=== PATIENT | female | born 1945 | race Caucasian/White ===

== ENCOUNTER 2019-09-26 19:46 | Inpatient (IN) | payer MEDICARE ==
[~2019-09-26] VITALS: Ht 157.5 cm; Wt 53.4 kg
--- NOTE | ~2019-09-26 | HEMODYNAMI ---
PATIENT:ROSEY BERNAL MEDICAL RECORD: [id number] : 41 [address] [id number] ADMISSION DATE: 10/12/19 Generatedon:10/12/201910:21 Patient name: ROSEY BERNAL Patient #: [id number] SSN: : 1945 Date of study: 10/12/2019 Page: Of Hemodynamic Procedure Report Patient Data Patient Demographics Procedure consent was obtained First Name: ROSYE Gender: Female Last Name: GABE : 1945 Patient #: [id number] Age: 74 year(s) Race: Unknown Additional ID: [id number] Contact details [address]: [address] [place] [address] State: [place] City: [place] Zip code: [address] Admission Admission Data Admission Date: 10/12/2019 Admission Time: 6:13 Room #: [facility] Procedure Procedure Types Cath Procedure Peripheral vascular Intervention Stent Carotid Stent Procedure Description Procedure Date Procedure Date: 10/12/2019 Procedure Start Time: 9:00 Procedure Staff Name Function Matt Paris MD Performing Physician Pierre Billy RT Monitor MARTITA CHAUDHRY RT Scrub Zari Nickerson RN Nurse Procedure Data Cath Procedure Fluoroscopy Diagnostic fluoroscopy Total fluoroscopy Time: time: 13.1 min 13.1 min Diagnostic fluoroscopy Total fluoroscopy dose: 482 dose: 482 mGy mGy Contrast Material Contrast Material Type Amount (ml) Isovue 300 90 Diagnostic catheters Device Type Used For End Catheter Placement Merit Chris Nielsen 5FR. 100CM catheter ([id number]) Procedure Medications Medication Administration Route Dosage Heparin Flush Bag added to field 4 bags (1000units/500ml NS) Lidocaine 1% added to field 20 Fentanyl I.V. 25 mcg Versed I.V. 0.5 mg Heparin Bolus I.V. 4000 units Fentanyl I.V. 25 mcg Hemodynamics Rest Heart Rate: 77 (bpm) Snapshots Pre Cath Intra NCS Post Cath Vital Signs Time Heart Resp SPO2 etCO2 NIBP (mmHg) Rhythm Pain Sedation Rate (ipm) (%) (mmHg) Status Level (bpm) 8:44:29 78 16 10.4 179/95(116) NSR 0 (11) 10(A) , No pain 8:48:49 87 9 31.4 185/84(130) NSR 0 (11) 10(A) , No pain 8:53:12 76 9 100 32.2 185/83(118) NSR 0 (11) 10(A) , No pain 8:57:30 80 16 100 25.4 194/92(125) NSR 0 (11) 10(A) , No pain 9:01:52 78 13 100 29.9 183/91(133) NSR 0 (11) 10(A) , No pain 9:06:10 78 14 100 20.9 192/95(125) NSR 0 (11) 10(A) , No pain 9:10:30 81 12 96 30.7 197/103(136) NSR 0 (11) 9(A) , No pain 9:14:52 80 13 96 9.7 195/100(140) NSR 0 (11) 9(A) , No pain 9:19:16 81 8 96 35.9 182/89(137) NSR 0 (11) 9(A) , No pain 9:23:36 82 16 96 24.7 180/83(112) NSR 0 (11) 9(A) , No pain 9:27:55 81 10 95 23.2 190/90(130) NSR 0 (11) 9(A) , No pain 9:32:17 82 11 96 14.9 184/84(142) NSR 0 (11) 9(A) , No pain 9:36:39 79 12 96 13.4 162/83(139) NSR 0 (11) 9(A) , No pain 9:41:38 79 10 92 12.7 Measuring NSR 0 (11) 9(A) , No pain 9:42:01 78 10 97 30.7 163/81(114) NSR 0 (11) 9(A) , No pain 9:46:19 75 12 98 0 163/69(120) NSR 0 (11) 9(A) , No pain 9:50:41 75 9 96 31.4 120/55(92) NSR 0 (11) 9(A) , No pain 9:55:40 74 13 78 0 Measuring NSR 0 (11) 9(A) , No pain 9:55:50 73 12 97 29.2 111/58(100) NSR 0 (11) 9(A) , No pain 10:00:47 73 14 100 0 134/67(97) NSR 0 (11) 9(A) , No pain 10:04:57 73 8 96 25.4 141/62(90) NSR 0 (11) 9(A) , No pain 10:09:09 72 10 99 22.4 125/64(97) NSR 0 (11) 9(A) , No pain 10:13:19 76 12 88 22.4 140/57(91) NSR 0 (11) 9(A) , No pain 10:17:29 75 11 97 31.4 124/66(104) NSR 0 (11) 9(A) , No pain Medications Time Medication Route Dose Verified Delivered Reason Notes Effec tiveness by by 9:06:00 Heparin Flush added 4 Matt Gutierrez used for Bag to bags Wellington Paris procedure (1000units/500ml field MD DRAKE NS) 9:06:11 Lidocaine 1% added 20ml Matt Gutierrez for local to vial Wellington Paris anesthetic field MD DRAKE 9:06:22 Fentanyl I.V. 25 Matt Hameed for mcg Wellington Nickerson RN sedation 9:06:39 Versed I.V. 0.5 Matt Hameed for mg Wellington Nickerson RN sedation 9:10:35 Heparin Bolus I.V. 4000 Matt Hameed Per units Wellington Nickerson RN physician 9:21:18 Fentanyl I.V. 25 Matt Hameed for mcg Wellington Nickerson RN sedation Procedure Log Time Note 8:31:08 Pierre Billy RT (R) (CV) sent for patient. Start room use. 8:31:17 Time tracking: Regular hours (M-F 7:00 - 5:00) 8:31:22 Plan of Care:Hemodynamics will remain stable., Cardiac rhythm will remain stable., Comfort level will be maintained., Respiratory function will remain adequate., Patient/ family verbilizes understanding of procedure., Procedure tolerated without complication., Recovers from procedure without complications.. 8:31:27 Use device set IR Diagnostic 8:31:32 ACIST Syringe (27346) opened to sterile field. 8:31:32 ACIST Hand Control (63148) opened to sterile field. 8:31:32 ACIST Manifold (21098) opened to sterile field. 8:31:33 Bag Decanter (2001S) opened to sterile field. 8:31:33 Sterile Angiographic Pack opened to sterile field. 8:31:34 Tegaderm 4 x 4 (1626W) opened to sterile field. 8:32:07 Patient received from Outpatients to IR Alert and oriented. Tansferred to table in Supine position. 8:32:12 Signed procedure consent form obtained from patient. 8:32:18 Correct patient and procedure confirmed by team. 8:32:19 Full Disclosure recording started 8:32:22 - 8:32:26 H&P Date Dictated: 10/12/2019 H&P Addendum completed by physician on day of procedure. (MUST COMPLETE FOR ALL OUTPATIENTS). 8:32:26 Pre-procedure instructions explained to patient. 8:32:27 Pre-op teaching completed and patient verbalized understanding. 8:32:28 Family in waiting room. 8:32:30 Patient NPO since Midnight. 8:32:35 Is the patient allergic to Iodine/contrast media? No. 8:32:37 Is patient on blood thinner?Yes 8:32:45 ACC The patient was administered the following blood thiners within the last 24 hours: ACCAspirin, Eliquis 8:32:47 Patient diabetic? No. 8:32:57 If diabetic: On Metformin? No 8:32:58 - 8:32:58 ----Pre-sedation anethsthesia assessment.---- 8:33:01 Previous problem with sedation/anesthesia? No ? 8:33:02 Snore? Yes 8:33:04 Sleep apnea? No 8:33:16 Deviated septum? No 8:33:17 Opens mouth fully? Yes 8:33:19 Sticks out tongue? Yes 8:33:38 Airway obstruction? Yes lung ca 8:33:44 Dentures? Yes in tight 8:35:54 Pre procedure: right dorsailis pedis pulse 1+ Palpable, but thready & weak; easily obliterated 8:36:04 IV patent on arrival in left forearm with 0.9% NaCl at KVO. 8:36:16 Right groin area was prepped with chlora-prep and draped in sterile fashion 8:41:13 2) 60-89 Mildly reduced kidney function, and other findings (as for stage 1) point to kidney disease. 8:42:28 Maximum allowable contrast dose (3.7 X eGFR X 0.75)205 ml. 8:43:27 ECG and BP/O2 sat monitors applied to patient. 8:43:28 Baseline sample Acquired. 8:43:28 Vital chart was started 8:59:15 Physician arrived 8:59:15 --------ALL STOP TIME OUT------ 8:59:16 Final Timeout: patient, procedure, and site verified with staff and physician. All members of the team are in agreement. 8:59:19 Right groin site verified by team. 8:59:22 Fire Safety Assessment: A--An alcohol-based skin anteseptic being used preoperatively., C--Open oxygen or nitrous oxide is being used. 8:59:30 Sedation plan: IV Moderate Sedation Medication:Versed, Fentanyl 9:00:13 Procedure started. 9:00:16 Local anesthetic to right femoral artery with Lidocaine 1% by Matt Paris MD.INITIAL ACCESS ONLY 9:00:30 DOC .035 wire (P66326) opened to sterile field. 9:00:30 Cook RAABE 6FR. 90cm guide sheath opened to sterile field. 9:00:31 DOC .035 wire (U78922) opened to sterile field. 9:00:31 TUBING Contrast Injection High Pressure (STJ722A) opened to sterile field. 9:00:32 SHEATH 5FR [place] (MXN984) opened to sterile field. 9:00:32 CHOICE PT Extra Support J 300cm guide wire ([id number]) opened to steril e field. 9:00:32 Micropuncture VSI 4FR kit opened to sterile field. 9:00:35 A Merit Impress Nielsen 5FR. 100CM catheter ([id number]) was advanced over the wire and used for . 9:00:36 INFLATOR BasixTOUCH (LO4095) opened to sterile field. 9:00:56 SPIDER EMBOLIC PROTECTION DEVICE 5MM ([id number]) opened to sterile field. 9:06:00 Heparin Flush Bag (1000units/500ml NS) 4 bags added to field was administered by Matt Paris MD; used for procedure; Verbal order read back and verified. 9:06:11 Lidocaine 1% 20ml vial added to field was administered by Matt kwong MD; for local anesthetic; Verbal order read back and verified. 9:06:22 Fentanyl 25 mcg I.V. was administered by Zari Nickerson RN; for sedation ; Verbal order read back and verified. 9:06:39 Versed 0.5 mg I.V. was administered by Zari Nickerson RN; for sedation; Verbal order read back and verified. 9:10:35 Heparin Bolus 4000 units I.V. was administered by Zari Nickerson RN; Per physician; Verbal order read back and verified. 9:12:03 GLIDE WIRE ANGLE 260cm (AF3476) opened to sterile field. 9:12:10 TORQUE DEVICE PLASTIC .038 ( TD01) opened to sterile field. 9:21:18 Fentanyl 25 mcg I.V. was administered by Zari Nickerson RN; for sedation ; Verbal order read back and verified. 9:33:11 Inflate balloon Inflation number: 1 A VIATRAC 4 x 2 x 135 balloon ([id number]) was prepped and advanced across the Undefined1 , then inflated to 8 YAEL for 0:05 (min:sec) . 9:41:58 PROTEGE RX TAPERED 8-6MM X 40MM X 135CM stent ([id number]) was deploye d across Undefined1 . 9:42:16 Inflate balloon Inflation number: 2 A VIATRAC 5 x 2 x 135 balloon ([id number]) was prepped and advanced across the Undefined1 , then inflated to 8 YAEL for 0:03 (min:sec) . 9:52:00 SHEATH 6FR [place] (YIF046) opened to sterile field. 9:55:57 MYNX SHOP STEWARD 6FR/7FR (DA1573) opened to sterile field. 10:00:56 Procedure ended.(Physican Out) 10::22 Fluoroscopy time 13.10 minutes. 10::29 Fluoroscopy dose: 482 mGy 10::29 Flurop Dose total: 482 10:03:08 Contrast amount:Isovue 300 90ml. 10:03:11 Sharps counted by scrub and verified by R.N. 10:03:12 Insertion/operative site no bleeding no hematoma. 10:03:16 Post-op/insertion site Right Femoral artery dressed using a 4 x 4 and Tegaderm. 10:03:20 Post right femoral artery:stable 10:03:23 Procedure and supply charges have been captured, reviewed, submitted an d are correct. 10:03:23 Post procedure instruction explained to patient.Patient verbalizes understanding. 10:20:51 Report given to CVICU. 10:20:55 Patient transfered to CVICU with Bed. 10:21:15 Vital chart was stopped Intervention Summary Intervention Notes Time ActionType Lesion and Equipment Action# Pressure Duration Attributes Used 9:33:11 Inflate Undefined1 VIATRAC 4 x 2 1 8 00:05 balloon x 135 balloon ([id number]) 9:41:58 Deploy self Undefined1 PROTEGE RX 1 expanding TAPERED 8-6MM stent X 40MM X 135CM stent ([id number]) 9:42:16 Inflate Undefined1 VIATRAC 5 x 2 2 8 00:03 balloon x 135 balloon ([id number]) Device Usage Item Name Manufacture Quantity Catalog Number Hospital Part Current Minimal Lot# / Charge Number Stock Stock Serial# Code ACIST Syringe Acist 1 37254 446414 407462 174182 20 (54993) Medical Systems Inc ACIST Hand Acist 1 71717 466508 071855 401679 5 Control Medical (67546) Systems Inc ACIST Manifold Acist 1 86958 913518 623378 062886 5 (46057) Medical Systems Inc Bag Decanter Microtek 1 2001S 488949 90801 270656 5 (2001S) Medical Inc. Sterile Cardinal 1 [id number] 090803 271267 5 Angiographic Health Pack Tegaderm 4 x 4 3M 1 1626W 176096 753946 189057 5 (1626W) DOC .035 wire Cook Medical 2 D79428 239931 384362 5 (W56587) Cook RAABE Cook Medical 1 G42451 774624 966340 5 6FR. 90cm guide sheath TUBING Merit 1 [id number] 971236 339743 251598 5 Contrast Medical Injection High Pressure (YZF662N) SHEATH 5FR Terumo 1 PVA401 096226 450163 317164 5 [place] (PHB869) CHOICE PT [place] 1 [id number] 986548 5 [id number] Extra Support Scientific J 300cm guide wire (7963738U8) Micropuncture VSI VASCULAR 1 7266V 136919 022553 5 VSI 4FR kit SOLUTIONS Merit Impress Merit 1 [id number] 337287 442170 5 Nielsen 5FR. Medical 100CM catheter (214106SSB) INFLATOR Merit 1 OA5066 728247 014780 985638 5 BasixIGIGI Medical (MI8410) SPIDER EMBOLIC Medtronic 1 [id number] 319277 458184 5 PROTECTION DEVICE 5MM ([id number]) GLIDE WIRE Terumo 1 XZ0858 299635 721641 833838 5 ANGLE 260cm (AS8329) TORQUE DEVICE [place] 1 TD01 002512 780783 609903 5 PLASTIC .038 ( Scientific TD01) VIATRAC 4 x 2 [place] 1 9217620-00 298341 200275 252719 5 x 135 balloon Vascular ([id number]) PROTEGE RX Medtronic 1 [id number]-[id number] 377420 63132 217281 5 [id number] TAPERED 8-6MM X 40MM X 135CM stent ([id number]) VIATRAC 5 x 2 [place] 1 5690328-46 306398 620115 319086 5 x 135 balloon Vascular ([id number]) SHEATH 6FR Terumo 1 YXY554 793173 443726 516600 40 [place] (ZOQ125) MYNX SHOP STEWARD Access 1 BZ1345 705546 719262 5 [id number] 6FR/7FR Closure (JN2243) Signature Audit Peel Stage Time Signature Unsigned Intra-Procedure 10/12/2019 Pierre 10:21:12 AM Mariajose RT (R) (CV) [facility] [address] [place] [address]
[2019-10-12] VITALS (20 sets, daily range): BP systolic 81–130; BP diastolic 34–69; Ht 157.5 cm; Wt 53.4 kg
[2019-10-12 07:57] LABS: ANION GAP 11.3 mmol/L (8-16); APTT 31.8 SECONDS (22.8-39.4); CARBON DIOXIDE 29.2 mmol/L (21.0-32.0); CREATININE - SERUM 0.8 mg/dL (0.6-1.3); INR 1.1 (0.85-1.17); POTASSIUM - SERUM 3.5 mmol/L (3.5-5.1); PROTIME 14.2 SECONDS (11.6-15.0)
[2019-10-12 08:20] LABS: BASOPHILS 0.4 % (0-2); EOSINOPHILS 2.2 % (0-7); HEMATOCRIT 39.8 % (36.0-48.0); HEMOGLOBIN 12.8 g/dL (12-16); IMMATURE GRANULOCYTES 0.1 % (0-5); LYMPHOCYTES 35.3 % (15-50); MCH 28.6 pg (26.0-34.0); MCHC 32.2 g/dL (31.0-37.0); MEAN PLATELET VOLUME 8.2 fL (7.4-10.4); MONOCYTES 5.7 % (2-11); NEUTROPHILS 56.3 % (40-80); PLATELET COUNT 235 10x3/uL (130-400); RBC 4.47 10x6/uL (4.00-5.40); RDW 13.2 % (11.5-14.5); WBC 7.1 10x3/uL (4.8-10.8)
[2019-10-12] MEDS ORDERED: ELAVIL25 MG PO (08:22)
[2019-10-12] MEDS ORDERED: KLONOPIN0.5 MG PO (08:27)
[2019-10-12] MEDS ORDERED: ELIQUIS5 MG PO (08:27)
[2019-10-12] MEDS ORDERED: LIPITOR20 MG PO (08:27)
[2019-10-12] MEDS ORDERED: LEXAPRO5 MG PO (08:28)
[2019-10-12] MEDS ORDERED: ALBUTEROL SULF8.5 GM INH (08:29)
[2019-10-12] MEDS ORDERED: BAYER CHEWABLE81 MG PO (08:29)
--- NOTE | 2019-10-12 10:45 | NUR ---
RECEIVED FROM IR AWAKE AND ALERT SKIN COOL AND DRY. RIGHT GROIN DRESSING DRY AND INTACT. HEMATOMA NOTED AND MARKED. 10 [address]AG IN [address]. PEDAL PULSES PALABLE. IV LEFT WRIST WITHOUT REDENSS OR SWELLING. DENIES PAIN, ANY NUMBNESS OR TINGLING. BILATERAL HAND GRISP EQUAL. HEAD OF BED FLAT.
[2019-10-12] MEDS ORDERED: CLARITIN 10 MG10 MG PO (11:05)
[2019-10-12] MEDS ORDERED: FUROSEMIDE20 MG (11:07)
[2019-10-12] MEDS ORDERED: MILK OF MAGNESI30 ML PO (11:07)
[2019-10-12] MEDS ORDERED: CEPACOL SORE T1 EAC3 PO (11:07)
[2019-10-12] MEDS ORDERED: TYLENOL #4 W/CO1 TAB PO (11:08)
--- NOTE | 2019-10-12 13:00 | NUR ---
LUNCH TRAY SERVED ATE FAIR. TAKING SIPS OF WATER. 10LB WEIGHT REMOVED. SMALL PRABHAKAR SIZE OF RED BLOOD ON DRESSING. NO BRUISING OR HEMATOMA NOTED. PEDAL PULSES PALABLE. DENIES PAIN.
--- NOTE | 2019-10-12 16:07 | NUR ---
NO CHANGES ON BEDPAN VOIDED CLEAR SARATH URINE. TURNING WITH ASSISTANCES. MONITOR SR. NO CHANGE IN DRESSING RIGHT GROIN. PEDAL PULSES PALABLE
--- NOTE | 2019-10-12 18:00 | NUR ---
WATCHING TV. RIGHT GROIN DRESSING DRY AND INTACT. NO CHANGES. ATE FAIR AT DINNER. MONITOR SR. NO DISTRESS
--- NOTE | 2019-10-12 19:20 | NUR ---
PT A/OX4, VOICES NEEDS, LUNGS CLEAR, LEFT FA PIV INTACT WITH IVF INFUSING, DRSG INTACT TO RIGHT GROIN, VITALS STABLE
--- NOTE | 2019-10-12 21:00 | NUR ---
PT AWAKE, TAKES PO MEDS WITHOUT DIFFICULTY, UP TO BSC WITH ASSIST
--- NOTE | 2019-10-12 23:15 | NUR ---
PT ASLEEP WITH NO DISTRESS, WILL CONT TO MONITOR
[2019-10-13] VITALS (10 sets, daily range): BP systolic 85–120; BP diastolic 34–57
--- NOTE | 2019-10-13 08:59 | NUR ---
0700 PT RECIEVED UP IN CHAIR ALERT AND ORIENTED VSS DENIES PAIN AND ALL NEEDS VSS, RFA PIV SL, CALL LIGHT WITHIN REACH
--- NOTE | 2019-10-13 10:33 | NUR ---
PT OK TO DC HOME, AWAITING RIDE
--- NOTE | 2019-10-13 11:02 | NUR ---
DC INSTRUCTIONS REVIEWED WITH PT AND PTS DAUGHTER, CHRISTI DCD
--- NOTE | 2019-10-13 11:23 | MORECARE ---
CASE MANAGEMENT DISCHARGE SUMMARY PATIENT: ROSEY BERNAL UNIT: [id number] ADM DATE: 10/12/19 AGE: 74 : 41 SEX: F ROOM/BED: [facility] AUTHOR: EDILSON MEEK PHYSICIAN: REFERRING PHYSICIAN: NITA MUSTAFA MD DATE OF SERVICE: 10/13/19 Discharge Plan Patient Name: ROSEY BERNAL [facility] [facility] 1945 Planned Disposition: Home Anticipated Discharge Date: 10/13/19 Discharge Date: 10/13/2019 Expected LOS: 1 Initial Reviewer: [email or web address] Initial Review Date: 10/12/2019 Generated: 10/13/19 12:22 pm Comments DCP- Discharge Planning Updated by [email or web address]: Dorinda Phillips on 10/13/19 10:[address] Patient was being wheeled to the elevator for discharge when cm arrived in CVICU. Unable to assess for need. No apparent need. Patient was accompanied. Patient Name: ROSEY BERNAL Page [phone] at 1123 All edits/amendments must be made on the electronic document DICTATION DATE: 10/13/191121 CULVERT INSTALLER: MARTIN 10/13/191121 RPT#: [id number] DC DATE:10/13/19 STATUS: DIS IN [facility] [address] [place] [address] END OF REPORT
== END 2019-10-13 11:10 | disposition home or self-care (01) | DRG 35 ==
LOC: D.CVICU 10-12 06:13 → D.SDCHOLD 10-12 06:13 → D.CVICU 10-12 10:19
PROVIDERS: ADMIT Radiology Diagnostic Radiology; ATTEND Radiology Diagnostic Radiology
PROC: 037K3DZ Dilation of Right Internal Carotid Artery with Intraluminal Device, Percutaneous Approach (ICD-10-PCS; principal; 2019-10-12 08:00)
DX: I65.21 Occlusion and stenosis of right carotid artery (principal); I97.638 Postprocedural hematoma of a circulatory system organ or structure following other circulatory system procedure